=== PATIENT | female | born 1945 | race Caucasian/White ===

== ENCOUNTER 2025-03-23 07:09 | Emergency (ER) | payer BC, MEDICARE ==
[2025-03-23] MEDS: Acetaminophen 325 MG Tab PO ONE (07:57)
== END 2025-03-23 09:12 | disposition home or self-care (01) ==
LOC: FB.ED 07:09
DX: S62.525A Nondisplaced fracture of distal phalanx of left thumb, initial encounter for closed fracture (principal); X50.1XXA Overexertion from prolonged static or awkward postures, initial encounter; W01.0XXA Fall on same level from slipping, tripping and stumbling without subsequent striking against object, initial encounter; Y93.89 Activity, other specified
CPT/HCPCS: 73130-LT; 99283; 99284; A9270-GY